=== PATIENT | female | born 1990 | race Caucasian/White ===

== ENCOUNTER 2022-07-11 18:33 | Emergency (ER) | payer BC, OTHER ==
[2022-07-11 18:59] VITALS: BP 129/89; PULSE 100; RESP 18; TEMP 98.3
[2022-07-11] MEDS ORDERED: FLUORESCEIN STRIPS 1 MG STRIP LEFT EYE ONE (19:11)
[2022-07-11] MEDS ORDERED: PROPARACAINE 0.5% OPHTH DROPS 15 ML BTL LEFT EYE STA (19:11)
--- NOTE | 2022-07-11 19:15 | ED ---
Eye Problem HPI - General Chief complaint: Eye Problems Stated complaint: lt eye irritation Time Seen by Provider: 07/11/22 19:06 Source: patient Mode of arrival: ambulatory - History of Present Illness Initial comments: This is a pleasant 32-year-old female presents to the emergency department complaining of left eye itching with clear discharge. Started last night. Patient does wear contact lenses and did sleep with her contact lenses in. No headache, no fever or chills, no changes in vision or hearing, no sore throat or difficulty with speech, no neck pain, no chest pain or shortness of breath, no abdominal pain, no nausea or vomiting, no changes in urination or bowel movements, no numbness or tingling, no extremity pain, no skin rashes or lesions. Past medical, surgical, social, and family history reviewed. MD chief complaint: eye redness, other (Left eye itching) Onset/Timin -: days(s) Onset Description: gradual Location: left eye If Injury: none Eye Symptoms: itching, discharge (Clear) Severity: mild Severity scale (1-10): 0 (No pain) Consistency: constant Associated Symptoms: none Treatments Prior to Arrival: none - Related Data Allergies Allergy/AdvReac Type Severity Reaction Status Date / Time No Known Allergies Allergy Verified 07/11/22 18:59 Review of Systems ROS Statement: Those systems with pertinent positive or pertinent negative responses have been documented in the HPI. ROS Other: All systems not noted in ROS Statement are negative. Past Medical History Past Medical History: No Reported History History of Any Multi-Drug Resistant Organisms: None Reported Past Surgical History: No Surgical Hx Reported Past Psychological History: Anxiety, Bipolar, Depression, PTSD Smoking Status: Never smoker Past Alcohol Use History: None Reported Past Drug Use History: None Reported General Exam General appearance: alert, in no apparent distress Head exam: Present: atraumatic, normocephalic, normal inspection Eye exam: Present: PERRL, EOMI, conjunctival injection (Left, with clear tearing). Absent: scleral icterus, nystagmus, periorbital swelling, periorbital tenderness ENT exam: Present: normal exam, mucous membranes moist, TM's normal bilaterally (Left TM is pearly [place]arthur. Good light reflex. No evidence of effusion. Right Kam[place] is minimally dull with no significant erythema. Positive light reflex.). Absent: mucous membranes dry, normal external ear exam Neck exam: Present: normal inspection, full ROM. Absent: lymphadenopathy, thyromegaly Respiratory exam: Present: normal lung sounds bilaterally. Absent: respiratory distress, wheezes, rales, rhonchi, stridor Cardiovascular Exam: Present: regular rate, normal rhythm, normal heart sounds. Absent: systolic murmur, diastolic murmur, rubs, gallop, clicks GI/Abdominal exam: Present: soft. Absent: tenderness Extremities exam: Present: normal inspection, full ROM, normal capillary refill. Absent: tenderness, pedal edema, joint swelling, calf tenderness Back exam: Present: normal inspection Neurological exam: Present: alert, oriented X3, CN II-XII intact, normal gait Psychiatric exam: Present: normal affect, normal mood Skin exam: Present: warm, dry, intact, normal color. Absent: rash Course Vital Signs 07/11/22 18:55 Temperature 98.3 F Pulse Rate 100 Respiratory 18 Rate Blood Pressure 129/89 O2 Sat by Pulse 100 Oximetry Procedures - Procedures Initial comment: Left eye was anesthetized with topical anesthetic, proparacaine. I was stained. James lamp examination was performed. There was no evidence of uptake. No evidence of foreign body or corneal ulceration. Lids were everted. No hypopyon or hyphema. Anterior chambers clear. Medical Decision Making - Medical Decision Making Differential diagnosis is ALLERGIC conjunctivitis, viral conjunctivitis, other irritant conjunctivitis. There was no injury. No evidence of foreign body. Patient asleep with her contact lenses in. Early corneal ulcer is possible. Well stain the eye and inspected further insulin and slit lamp. Plan for discharge. Patient was told to return to the ER for any signs or symptoms worsen. Told to return immediately if any other problems arise. All questions answered. Treatment plan discussed. Patient in agreement Every effort has been made to ensure accuracy of this dictation. However, due to the limitations of electronic medical records and dictation devices, errors in charting still occur. Supervising physician Dr. Leyva Disposition Clinical Impression: Viral conjunctivitis Disposition: HOME SELF-CARE Condition: Good Instructions (If sedation given, give patient instructions): Conjunctivitis (ED) Additional Instructions: Erythromycin ointment, 1 cm to the affected eye every 6 hours for 5-7 days. Continue for 24 hours after the eye has cleared up. Follow-up with your regular physician as directed. Return to the ER immediately if any symptoms worsen, new symptoms arise, or any other problems develop. Do not wear contact lenses until symptoms have resolved. Is patient prescribed a controlled substance at d/c from ED?: No Referrals: Nonstaff,Physician [Primary Care Provider] - 1-2 days Time of Disposition: 19:25
[2022-07-11] MEDS ORDERED: ERYTHROMYCIN 5 MG/GM OPHTH OINT 3.5 GM TUBE LEFT EYE STA (19:24)
== END 2022-07-11 19:52 | disposition home or self-care (01) ==
LOC: EC 18:33
DX: B30.9 Viral conjunctivitis, unspecified (principal)
CPT/HCPCS: 99283

== ENCOUNTER 2022-07-18 14:13 | Emergency (ER) | payer BC, OTHER ==
[2022-07-18 14:33] VITALS: BP 157/80; PULSE 100; RESP 20; TEMP 97.8
--- NOTE | 2022-07-18 14:54 | ED ---
General Adult HPI - General Chief complaint: ENT Stated complaint: Ear ache Time Seen by Provider: 07/18/22 14:44 Source: patient, RN notes reviewed, old records reviewed Mode of arrival: ambulatory Limitations: no limitations - History of Present Illness Initial comments: 32-year-old female presenting with right earache for the past 2 weeks. Patient had a conjunctivitis and was treated conservatively and continues to have ear pain with drainage. She does have a history of psoriasis and states that her psoriasis has been acting up including involvement of the right scalp and ear. No fevers. She has mild rhinorrhea. - Related Data Previous Rx's Medication Instructions Recorded Amoxic-Pot Clav 875-125Mg 1 tab PO BID 7 Days #14 tab 07/18/22 [Augmentin 875-125] Ciprofloxacin-Dexameth [Ciprodex 4 drops RIGHT EAR BID 7 Days #7.5 07/18/22 Otic Susp] ml Allergies Allergy/AdvReac Type Severity Reaction Status Date / Time No Known Allergies Allergy Verified 07/18/22 14:33 Review of Systems ROS Statement: Those systems with pertinent positive or pertinent negative responses have been documented in the HPI. ROS Other: All systems not noted in ROS Statement are negative. Past Medical History Past Medical History: No Reported History History of Any Multi-Drug Resistant Organisms: None Reported Past Surgical History: No Surgical Hx Reported Past Psychological History: Anxiety, Bipolar, Depression, PTSD Smoking Status: Never smoker Past Alcohol Use History: None Reported Past Drug Use History: None Reported General Exam Limitations: no limitations General appearance: alert, in no apparent distress Head exam: Present: atraumatic, normocephalic Eye exam: Present: normal appearance, PERRL. Absent: conjunctival injection ENT exam: Absent: TM's normal bilaterally (Right tympanic membrane is erythematous there is flaking throughout the canal which limits the assessment. The external auditory canal is very erythematous with drainage.) Respiratory exam: Present: normal lung sounds bilaterally. Absent: respiratory distress, wheezes Cardiovascular Exam: Present: regular rate, normal rhythm GI/Abdominal exam: Absent: distended Course Vital Signs 07/18/22 14:29 Temperature 97.8 F Pulse Rate 100 Respiratory 20 Rate Blood Pressure 157/80 O2 Sat by Pulse 99 Oximetry Medical Decision Making - Medical Decision Making 32-year-old female with 2 weeks of earache. She does have otitis externa a. No mastoid erythema or tenderness. Eardrum is erythematous and obscured by flaking throughout the canal. I did cover with oral antibiotics as well as drops given the duration of symptoms and limited exam. She will follow up with ENT. Return parameters discussed. Disposition Clinical Impression: Otitis externa Disposition: HOME SELF-CARE Instructions (If sedation given, give patient instructions): Swimmer's Ear (ED), Earache (ED) Prescriptions: Amoxic-Pot Clav 875-125Mg [Augmentin 875-125] 1 tab PO BID 7 Days #14 tab Ciprofloxacin-Dexameth [Ciprodex Otic Susp] 4 drops RIGHT EAR BID 7 Days #7.5 ml Is patient prescribed a controlled substance at d/c from ED?: No Referrals: Jay Jay Jc MD [Primary Care Provider] - 1-2 days Damian Crawford MD [STAFF PHYSICIAN] - 1-2 days Time of Disposition: 14:52
== END 2022-07-18 14:59 | disposition home or self-care (01) ==
LOC: EC 14:13
DX: H60.90 Unspecified otitis externa, unspecified ear (principal); F41.9 Anxiety disorder, unspecified; F31.9 Bipolar disorder, unspecified; Z79.899 Other long term (current) drug therapy
CPT/HCPCS: 99282